=== PATIENT | female | born 1990 | race Caucasian/White ===

== ENCOUNTER 2017-12-19 18:29 | Emergency (ER) | payer SELFPAY | END 2017-12-19 19:21 | disposition left against medical advice (07) | LOC: E/R 19:21 | DX: Z53.21 Procedure and treatment not carried out due to patient leaving prior to being seen by health care provider (principal) | CPT/HCPCS: 93005 ==

== ENCOUNTER 2017-12-19 19:35 | Inpatient (IN) | payer SELFPAY ==
[2017-12-19] MEDS ORDERED: ACETAMINOPHEN 325 MG TAB PO (20:30)
[2017-12-19] MEDS ORDERED: AL HYDROX/MG HYDROX/SIMETH 30 ML CUP PO (20:30)
[2017-12-19 20:56] LABS: ADD MAN DIFF? NO
[2017-12-19 21:00] LABS: WHITE BLOOD COUNT 5.3 10^3/ul (4.8-10.8)
[2017-12-19 21:00] LABS: BASOPHILS % 0.4 % (0.0-2.0); EOSINOPHILS # 0.1 10^3/ul (0.0-0.5); EOSINOPHILS % 1.9 % (0.0-7.0); HEMATOCRIT 31.1 % (37.0-47.0); HEMOGLOBIN 9.9 g/dl (12.0-16.0); LYMPHOCYTES # 1.6 10^3/ul (0.8-2.9); LYMPHOCYTES % 30.6 % (15.0-51.0); MEAN CORPUSCULAR HEMOGLOBIN 24.4 pg (29.0-33.0); MEAN CORPUSCULAR HGB CONC 31.8 g/dl (32.0-37.0); MEAN CORPUSCULAR VOLUME 76.8 fl (82.0-101.0); MONOCYTE # 0.4 10^3/ul (0.3-0.9); MONOCYTES % 7.8 % (0.0-11.0); NEUTROPHIL # 3.1 10^3/ul (1.6-7.5); NEUTROPHILS % 59.1 % (39.0-77.0); PLATELET COUNT 272 10^3/UL (140-415); RED BLOOD COUNT 4.05 10^6/ul (4.20-5.40); RED CELL DISTRIBUTION WIDTH 15.9 % (11.5-14.5)
[2017-12-19 21:20] LABS: INR 0.98; PROTIME 13.1 Sec (11.9-14.9)
[2017-12-19 21:21] LABS: PARTIAL THROMBOPLASTIN TIME 34.4 Sec (25.0-35.0)
[2017-12-19 21:22] LABS: ALANINE AMINOTRANSFERASE 34 IU/L (13-69); ALBUMIN 2.9 g/dl (3.3-4.9); ALBUMIN/GLOBULIN RATIO 0.93; ALKALINE PHOSPHATASE 85 IU/L (42-121); ANION GAP 7 (8-16); ASPARTATE AMINO TRANSFERASE 30 IU/L (15-46); BILIRUBIN,INDIRECT 0.1 mg/dl (0-1.1); BILIRUBIN,TOTAL 0.1 mg/dl (0.2-1.3); BLOOD UREA NITROGEN 15 mg/dl (7-20); CALCIUM 8.4 mg/dl (8.4-10.2); CARBON DIOXIDE 28 mmol/L (21-31); CHLORIDE 104 mmol/L (97-110); CREATININE 0.53 mg/dl (0.44-1.00); GLUCOSE 95 mg/dl (70-220); LACTATE DEHYDROGENASE 319 IU/L (313-618); POTASSIUM 3.6 mmol/L (3.5-5.1); SODIUM 135 mmol/L (135-144); URIC ACID 4.6 mg/dl (3.1-7.9)
[2017-12-19 21:36] LABS: HEMOGLOBIN A1C 5.6 % (0-5.9)
[2017-12-19 21:53] LABS: HEPATITIS B SURFACE ANTIGEN NEGATIVE (NEGATIVE)
[2017-12-19 22:02] LABS: HIV 1&2 ANTIBODY NEGATIVE (NEGATIVE)
[2017-12-19] MEDS: ACETAMINOPHEN 325 MG TAB PO (22:51)
[2017-12-19] MEDS: LABETALOL 100 MG TAB PO (22:52)
[2017-12-19] MEDS: DEXTROSE 5%-LR 1,000 ML IV (23:24)
[2017-12-19] MEDS: OXYTOCIN 30 UNITS/LR 500 ML IV (23:24)
[2017-12-19] MEDS ORDERED: OXYCODONE/ACETAMINOPHEN (5/325) TAB PO (23:30)
[2017-12-19] MEDS ORDERED: METHYLERGONOVINE 0.2 MG TAB PO (23:30)
[2017-12-19] MEDS ORDERED: CARBOPROST 250 MCG INJ IM (23:30)
[2017-12-19] MEDS: OXYCODONE/ACETAMINOPHEN (5/325) TAB PO (23:30)
[2017-12-19] MEDS ORDERED: MISOPROSTOL 200 MCG TAB PR (23:30)
[2017-12-19] MEDS ORDERED: OXYTOCIN 30 UNITS/LR 500 ML IV (23:30)
[2017-12-19] MEDS ORDERED: LANOLIN 7 GM TUBE TOP (23:30)
[2017-12-19] MEDS ORDERED: METHYLERGONOVINE 0.2 MG INJ IM (23:30)
[2017-12-20 00:02] LABS: AMPHETAMINE/METHAMPHETAMINE Positive (NEGATIVE); BARBITURATES Negative (NEGATIVE); BENZODIAZEPINES Negative (NEGATIVE); CANNABINOIDS Negative (NEGATIVE); COCAINE Negative (NEGATIVE); OPIATES Negative (NEGATIVE)
[2017-12-20] MEDS ORDERED: LABETALOL 100 MG TAB PO (09:00)
[2017-12-20] MEDS: PRENATAL VITAMIN PO (09:00)
[2017-12-20] MEDS ORDERED: SENNA/DOCUSATE NA (8.6MG/50MG) TAB PO (09:00)
[2017-12-20] MEDS: FERROUS SULFATE (EC) 325 MG TAB PO (09:00)
[2017-12-20] MEDS: LABETALOL 100 MG TAB PO ×2 (09:32→21:16)
[2017-12-20 15:32] LABS: RAPID PLASMA REAGIN NONREACTIVE (NR)
[2017-12-20] MEDS ORDERED: HYDROCODONE/APAP (5/325) TAB PO ×2 (20:00)
[2017-12-20 23:51] LABS: COLLECTION PERIOD 24 hrs
[2017-12-21 01:40] LABS: COLLECTION PERIOD 24 hrs; CREATININE CLEARANCE 132.5 mls/min (84.0-162.0); CREATININE,URINE RANDOM 155.62 mg/dl (20-320); SCRET 0.53 mg/dl (0.44-1.00); VOLUME 650 ml/24hrs; VOLUME 650 mls
[2017-12-21] MEDS: PRENATAL VITAMIN PO (09:23)
[2017-12-21] MEDS: FERROUS SULFATE (EC) 325 MG TAB PO (09:23)
[2017-12-21] MEDS: LABETALOL 100 MG TAB PO ×2 (09:24→14:16)
[2017-12-21 11:41] LABS: ADD MAN DIFF? NO
[2017-12-21 11:42] LABS: WHITE BLOOD COUNT 6.4 10^3/ul (4.8-10.8)
[2017-12-21 11:42] LABS: BASOPHILS % 0.2 % (0.0-2.0); EOSINOPHILS # 0.1 10^3/ul (0.0-0.5); EOSINOPHILS % 1.1 % (0.0-7.0); HEMOGLOBIN 9.7 g/dl (12.0-16.0); LYMPHOCYTES # 1.4 10^3/ul (0.8-2.9); LYMPHOCYTES % 21.6 % (15.0-51.0); MEAN CORPUSCULAR HEMOGLOBIN 24.5 pg (29.0-33.0); MEAN CORPUSCULAR HGB CONC 31.3 g/dl (32.0-37.0); MEAN CORPUSCULAR VOLUME 78.3 fl (82.0-101.0); MEAN PLATELET VOLUME 10.2 fl (7.4-10.4); MONOCYTE # 0.3 10^3/ul (0.3-0.9); MONOCYTES % 4.7 % (0.0-11.0); NEUTROPHIL # 4.6 10^3/ul (1.6-7.5); NEUTROPHILS % 71.9 % (39.0-77.0); PLATELET COUNT 245 10^3/UL (140-415); RED BLOOD COUNT 3.96 10^6/ul (4.20-5.40)
[2017-12-21 12:11] LABS: ALANINE AMINOTRANSFERASE 33 IU/L (13-69); ALBUMIN 2.5 g/dl (3.3-4.9); ALBUMIN/GLOBULIN RATIO 0.86; ALKALINE PHOSPHATASE 83 IU/L (42-121); ANION GAP 9 (8-16); ASPARTATE AMINO TRANSFERASE 16 IU/L (15-46); BILIRUBIN,INDIRECT 0.1 mg/dl (0-1.1); BILIRUBIN,TOTAL 0.1 mg/dl (0.2-1.3); BLOOD UREA NITROGEN 9 mg/dl (7-20); CALCIUM 8.6 mg/dl (8.4-10.2); CARBON DIOXIDE 28 mmol/L (21-31); CHLORIDE 102 mmol/L (97-110); CREATININE 0.58 mg/dl (0.44-1.00); GLUCOSE 107 mg/dl (70-220); POTASSIUM 3.7 mmol/L (3.5-5.1); SODIUM 135 mmol/L (135-144); TOTAL PROTEIN 5.4 g/dl (6.1-8.1); URIC ACID 3.5 mg/dl (3.1-7.9)
[2017-12-21] MEDS: LABETALOL 200 MG TAB PO (21:00)
[2017-12-22] MEDS: LABETALOL 200 MG TAB PO (08:51)
[2017-12-22] MEDS ORDERED: MEASLES,MUMPS,RUBELLA VACCINE INJ SC* (09:00)
[2017-12-22] MEDS: PRENATAL VITAMIN PO (09:00)
[2017-12-22] MEDS: FERROUS SULFATE (EC) 325 MG TAB PO (09:00)
[2017-12-22] MEDS ORDERED: DIPHTH/TET/ACEL PERTUSS (ADULT) 0.5 ML VIAL IM* (09:00)
[2017-12-23 12:41] LABS: RUBELLA ANTIBODY - IGG 1.65 index; RUBELLA ANTIBODY - IGM <20.00 AU/mL
== END 2017-12-22 15:23 | disposition home or self-care (01) | DRG 781 ==
LOC: OBT 19:35 → L-D 19:35 → OBT 20:05 → L-D 20:05 → PP1 23:53
DX: O10.912 Unspecified pre-existing hypertension complicating pregnancy, second trimester (principal); Z3A.26 26 weeks gestation of pregnancy; Z59.0 Homelessness; R51 Headache; R07.9 Chest pain, unspecified
CPT/HCPCS: 76815; 80053; 80307; 82575; 83036; 83615; 84156; 84443; 84560; 85025; 85610; 85730; 86592; 86703; 86762; 86850; 86900; 86901; 87340; 87591